=== PATIENT | female | born 1950 | race African-American/Black ===

== ENCOUNTER 2018-11-26 07:19 | Day surgery (SDC) | payer BC ==
[2018-11-19 11:20] VITALS: BMI 27.8
[2018-11-26] MEDS ORDERED: ceFAZolin Sodium (SDC) 2 GM/100 ML BAG ONE (08:05)
[2018-11-26] MEDS ORDERED: Fentanyl 100 MCG/2 ML VIAL ONE ×2 (11:05→15:07)
[2018-11-26] MEDS ORDERED: Sodium Chloride 0.9% 10 ML ONE (11:06)
[2018-11-26] MEDS ORDERED: PROPOFOL 200 MG/20 ML VIAL ONE (11:15)
[2018-11-26] MEDS ORDERED: ePHEDrine 50 MG/ML VIAL ONE (11:15)
[2018-11-26] MEDS ORDERED: Dexamethasone 20 MG/5 ML VIAL ONE (11:15)
[2018-11-26] MEDS ORDERED: PHENYLEPHRINE-NS 100 MCG/ML 10 ML SYRINGE ONE (11:15)
[2018-11-26] MEDS ORDERED: Rocuronium Bromide 10 MG/ML (10ML VIAL) ONE (11:15)
[2018-11-26] MEDS ORDERED: Lidocaine 1% PF 5 ML VIAL ONE (11:15)
[2018-11-26] MEDS ORDERED: Ondansetron PF 4 MG/2 ML Vial ONE (11:15)
[2018-11-26] MEDS ORDERED: HYDROmorphone 2 MG/ML VIAL ONE (12:59)
[2018-11-26] MEDS ORDERED: Thrombin 5000 UNITS/5 ML VIAL ONE (13:07)
[2018-11-26] MEDS ORDERED: Milk Of Magnesia 30 ML UDCUP PO PRN (14:30)
[2018-11-26] MEDS ORDERED: Mag-Al 1200 mg/1200 mg/30 ML UDCUP PO PRN (14:30)
[2018-11-26] MEDS ORDERED: Bisacodyl 10 MG SUPP PR PRN (14:30)
[2018-11-26] MEDS ORDERED: HYDROcodone/Acetaminophen 7.5/325 mg Tablet PO PRN (14:30)
[2018-11-26] MEDS ORDERED: tiZANidine HCl 4 MG TAB PO PRN (14:30)
[2018-11-26] MEDS ORDERED: Morphine 2 MG/ML SYRINGE SLOW IVP PRN (14:30)
[2018-11-26] MEDS ORDERED: Ondansetron PF 4 MG/2 ML Vial IVP PRN (14:30)
[2018-11-26] MEDS ORDERED: traMADol HCl 50 MG TAB PO PRN (14:30)
[2018-11-26] MEDS ORDERED: Fleet Enema 133 ML BOT PR PRN (14:30)
[2018-11-26] MEDS ORDERED: PROVENTIL INHALER 6.7 G (200 INHALATIONS) INH PRN (14:32)
[2018-11-26] MEDS ORDERED: PACU-Morphine 4MG/ML VIAL SLOW IVP PRN (14:42)
[2018-11-26] MEDS ORDERED: Ondansetron HCl/PF 4 MG/2 ML Vial IVP PRN (14:42)
[2018-11-26] MEDS ORDERED: Morphine Sulfate 2 MG/ML SYRINGE SLOW IVP PRN (14:42)
[2018-11-26] MEDS ORDERED: Meperidine HCl/PF 25 MG/ML VIAL SLOW IVP PRN (14:42)
[2018-11-26] MEDS ORDERED: Promethazine HCl 25 MG/ML VIAL SLOW IVP PRN (14:42)
[2018-11-26] MEDS ORDERED: Promethazine HCl 25 MG/ML VIAL IM PRN (14:42)
[2018-11-26] MEDS ORDERED: HYDROmorphone 2 MG/ML VIAL SLOW IVP PRN (14:42)
[2018-11-26] MEDS ORDERED: CEFAZOLIN 2 GM, IV Admixture Fee-Chemo 1 UNITS in Sodium Chloride 0.9% 100 ML IVPB SCH (17:00)
[2018-11-26] MEDS: Sodium Chloride 0.9% 1,000 ML IV SCH (17:25)
[2018-11-26] MEDS: Gabapentin 300 MG CAP PO SCH ×2 (17:25→20:33)
[2018-11-26] MEDS: CEFAZOLIN 2 GM, IV Admixture Fee-Chemo 1 UNITS in Sodium Chloride 0.9% 100 ML IVPB SCH (20:36)
[2018-11-26] MEDS: Acetaminophen/Codeine 30-300mg Tablet PO PRN (20:46)
[2018-11-27] MEDS: Acetaminophen 325 MG TAB PO PRN (02:27)
[2018-11-27] MEDS ORDERED: diphenhydrAMINE 25 MG CAP PO PRN (03:25)
[2018-11-27] MEDS: Sodium Chloride 0.9% 1,000 ML IV SCH ×2 (03:36→16:05)
[2018-11-27] MEDS: CEFAZOLIN 2 GM, IV Admixture Fee-Chemo 1 UNITS in Sodium Chloride 0.9% 100 ML IVPB SCH (03:37)
[2018-11-27] MEDS: Gabapentin 300 MG CAP PO SCH ×3 (09:20→20:15)
[2018-11-27] MEDS: Ascorbic Acid 500 mg Chewable Tablet PO SCH (09:20)
[2018-11-27] MEDS: Hydrochlorothiazide 25 MG TAB PO SCH (09:20)
--- NOTE | 2018-11-27 09:24 | OP ---
DATE OF PROCEDURE: 11/26/2018 LOCATION: OR 12. [employer] MANAGER: Leonardo Mandujano PA-C. PREPROCEDURE DIAGNOSIS: Multilevel lumbar stenosis with low back and leg pain. POSTPROCEDURE DIAGNOSIS: Multilevel lumbar stenosis with low back and leg pain. PROCEDURES PERFORMED: L2-L3, L3-L4, L4-L5, L5-S1 laminectomies, partial facetectomies, and foraminotomies over the L2, L3, L4, L5, S1 nerve roots. DESCRIPTION OF PROCEDURE: The patient was placed under excellent general endotracheal anesthesia and positioned prone on the OR table. All appropriate points were padded. We identified through midline lumbar incision drawn out an appropriate approach to the L2, L3, L4, L5, and S1 dorsal spines and lamina. Localization film confirmed our area of interest following dissection, and the L2, L3, L4, L5, and S1 laminectomies, partial facetectomies, and foraminotomies were performed. The dura was quite attenuated over the right L3-L4 facet complex, essentially with their capsule being one with the dura and there was spinal fluid leak. However, we were able to seal this simply with a dissolvable Gel-Foam. DuraSeal was placed. Copious irrigation occurred throughout as did maximizing hemostasis. We were pleased with our decompression. The wound was copiously irrigated and closed in anatomic layers following sprinkling of vancomycin powder. The patient emerged from anesthesia. Job ID: [id number]
--- NOTE | 2018-11-27 09:34 | PRG ---
DATE OF SERVICE: 11/27/2018 Ms. Baig is postoperative day 1 from multilevel lumbar laminectomy. She did have intraoperative CSF leak. She had some headache last night, but has none this morning. She is mobilizing. She has improvement in her leg pain, compared to before surgery with no leg pain in the left and paresthesias in the right. Her right L3-L4 facet complex capsule was essentially completely adhered to her dura. She moves all her extremities without deficit. She needs another day in the hospital to work with physical therapy before going home. Job ID: [id number]
[2018-11-27] MEDS: Acetaminophen/Codeine 30-300mg Tablet PO PRN (12:16)
[2018-11-27] MEDS ORDERED: Dexamethasone 10 MG/ML VIAL SLOW IVP SCH (12:45)
[2018-11-27] MEDS: NIFEdipine XL 60 MG TAB PO SCH (12:51)
[2018-11-27] MEDS: Ketorolac Tromethamine 30 MG/ML VIAL IVP SCH ×2 (13:58→18:51)
[2018-11-28] MEDS: Ketorolac Tromethamine 30 MG/ML VIAL IVP SCH ×3 (00:34→13:47)
[2018-11-28] MEDS: Sodium Chloride 0.9% 1,000 ML IV SCH (06:25)
[2018-11-28] MEDS: Gabapentin 300 MG CAP PO SCH (08:06)
[2018-11-28] MEDS: Ascorbic Acid 500 mg Chewable Tablet PO SCH (08:06)
[2018-11-28] MEDS: Acetaminophen 325 MG TAB PO PRN (11:39)
[2018-11-28] MEDS: Hydrochlorothiazide 25 MG TAB PO SCH (11:42)
[2018-11-28 11:45] VITALS: BP 136/63
[2018-11-28] MEDS: NIFEdipine XL 60 MG TAB PO SCH (11:45)
[2018-11-28 11:58] VITALS: TEMP 97.9
== END 2018-11-28 14:28 | disposition home or self-care (01) ==
LOC: SDC 07:19 → SJJU 14:30 → SDC 11-28 14:28
PROVIDERS: ATTEND Surgery
PROC: 01NB0ZZ Release Lumbar Nerve, Open Approach (ICD-10-PCS; principal; 2018-11-26)
DX: M48.061 Spinal stenosis, lumbar region without neurogenic claudication (principal); M54.16 Radiculopathy, lumbar region
CPT/HCPCS: J0690; J1100; J1170; J1885; J2001; J2405; J2704; J3010; J3370; J3490; Q0163